=== PATIENT | female | born 1960 | race Caucasian/White ===

== ENCOUNTER 2023-10-26 18:44 | Emergency (ER) | payer OTHER, SELFPAY ==
[2023-10-26 18:49] VITALS: BP 132/69
[2023-10-26 19:33] VITALS: BMI 18.8
[2023-10-26 19:43] VITALS: BP 121/69
[2023-10-26 20:00] VITALS: BP 98/66
[2023-10-26 20:01] LABS: % Basophils 0.7 % (0-2); % Eosinophils 3.8 % (0-6); % Immature Granulocytes 0.3 % (0-0.5); % Lymphocytes 34.4 % (20.5-51.1); % Monocytes 8.6 % (1.7-9.3); % Neutrophils 52.2 % (42.2-75.2); Absolute Eosinophils 0.1 10^3/uL (0-0.7); Absolute Monocytes 0.3 10^3/uL (0.1-0.6); Absolute Neutrophils 1.5 10^3/uL (1.4-6.5); Hematocrit 35.9 % (37.0-47.0); Hemoglobin 12.6 g/dL (12.0-16.0); Mean Corp Hgb Conc. 35.1 g/dL (33.0-37.0); Mean Corpuscular Hgb 32.3 pg (27.0-31.0); Mean Corpuscular Volume 92.1 fL (81.0-99.0); Mean Platelet Volume 10.7 fL (7.4-10.4); Nucleated Red Blood Cells % 0 %; Platelet Count 186 10^3/uL (130-400); Red Cell Dist. Width 11.9 % (11.5-14.5); White Blood Cell Count 2.9 10^3/uL (4.8-10.8)
[2023-10-26 20:03] LABS: Urine Albumin Negative (Neg - Trace); Urine Bilirubin Negative (Negative); Urine Character Clear (Clear); Urine Color Yellow; Urine Glucose Negative (Negative); Urine Ketone Negative (Negative); Urine Leukocyte Negative (Negative); Urine Nitrite Negative (Negative); Urine Occult Blood Negative (Negative); Urine Urobilinogen Negative (Neg - 1+); Urine pH 6.5 (5.0-9.0)
[2023-10-26 20:22] LABS: ALT (SGPT) 15 U/L (0-35); AST (SGOT) 29 U/L (14-36); Albumin 4.8 g/dl (3.5-5.0); Alkaline Phosphatase 52 U/L (38-126); Blood Urea Nitrogen 17 mg/dl (7-17); Calcium 9.6 mg/dl (8.4-10.2); Carbon Dioxide 29 mmol/L (22-30); Chloride 98 mmol/L (98-107); Estimated Creatinine Clearance 87 ml/min; Glucose 94 mg/dl (70-99); Potassium 4.3 mmol/L (3.5-5.1); Sodium 133 mmol/L (135-145); Total Bilirubin 1.8 mg/dl (0.2-1.3); Total Protein 7.1 g/dl (6.3-8.2); eGFR > 60.00
[2023-10-26 21:00] VITALS: BP 117/72
[2023-10-26 22:17] VITALS: BP 114/80
--- NOTE | 2023-10-27 | ED.GENMED ---
History of Present Illness
General
Chief Complaint: Abdominal Symptoms
Source: patient
Exam Limitations: none
Time Seen by Provider: 10/26/23 19:56
Nursing documentation reviewed up to this point in time: agreed with
History of Present Illness
History of Present Illness:
Patient to ED with complaint of continuous abdominal bloating, pelvic pressure. Symptms have been present for months. Has rx for outpatient abd. and pelvic US but has not scheduled. Had colonoscopy 7 mos ago, normal Brought to ED by spouse for
eval. No fever/chlls, n/v/d.
Past History
Past History
ED Past Medical History: None
ED Past Surgical History: None
Social History
Tobacco: Non-smoker
Alcohol: Occasional
Drug: None
Personal: Single
Living: with family
Employment: Employed
Review of Systems
Review of Systems
Allergies reviewed?: Yes
All Other Systems: ROS reviewed and negative except as documented in HPI and ROS
Constitutional: Reports no symptoms
EENT: Reports no symptoms
Respiratory: Reports no symptoms
Cardiac: Reports no symptoms
ABD/GI: Reports other (abdominal bloating)
: Reports other (Pelvic pressure)
Musculoskeletal: Reports no symptoms
Skin: Reports no symptoms
Neurological: Reports no symptoms
Psychiatric: Reports no symptoms
Phy Exam
General Physical Exam
General Presentation: well appearing and no apparent distress
General age: appears stated age
General Skin: warm and dry
General Habitus: normal
Cardiovascular Exam
Cardiovascular Exam: regular rate/rhythm and no edema
Gastrointestinal Exam
Gastrointestinal Exam: normal bowel sounds, non tender, soft, no organomegaly, no pulsatile mass and non distended
Musculoskeletal Exam
Musculoskeletal Exam: full ROM and neuro vasc intact
Skin Exam
Skin Exam: normal color, warm/dry and no rash
Psychiatric Exam
Psychiatric Exam: normal mood/affect
Course
Orders/Labs/Results
Orders:
Orders
10/26/23 19:52
Complete Blood Count/With Diff Urgent
Comprehensive Metabolic Panel Urgent
Urinalysis Reflex To Culture Urgent
Date Specimen was Collected: 10/26/23
Time Specimen was Collected: 19:46
10/26/23 20:35
Pelvis (Non Obstetric) US [US Pelvis Only (non-obstetric)] Urgent
Comment:
Reason For Exam: pain
US Abdomen Complete/Upper Urgent
Comment:
Reason For Exam: bloating/fullness
Abnormal Lab Results
10/26/23
19:52
WBC 2.9 L 10^3/uL
(4.8-10.8)
RBC 3.90 L 10^6/uL
(4.20-5.40)
Hct 35.9 L %
(37.0-47.0)
MCH 32.3 H pg
(27.0-31.0)
MPV 10.7 H fL
(7.4-10.4)
Absolute Lymphs (auto) 1.0 L 10^3/uL
(1.2-3.4)
Sodium 133 L mmol/L
(135-145)
Total Bilirubin 1.8 H mg/dl
(0.2-1.3)
10/26/23 19:52
10/26/23 19:52
Vital Signs
Initial and Last Documented VS:
Initial Vital Signs
Temp Pulse Resp BP Pulse Ox
97.9 F 64 18 132/69 100
10/26/23 18:49 10/26/23 18:49 10/26/23 18:49 10/26/23 18:49 10/26/23 18:49
Last Documented Vital Signs
Temp Pulse Resp BP Pulse Ox
97.9 F 50 9 114/80 100
10/26/23 18:49 10/26/23 23:00 10/26/23 21:30 10/26/23 22:17 10/26/23 22:45
*Radiology
Radiology exam reviewed: radiology read reviewed
*Pulse Oximetry
Patient hypoxic: no
*Critical Care Note
Total Time (30-74mins, 75-104mins- exclusive of procedures): Not Applicable
Update Note
Update Note:
Labs, US results discussed wth patient. No concerning findings on exam. No findings to explain her complaint of bloating. She has a GI specialist with whom [facility]. Last seen 7mos ago for colonoscopy which was normal Recommend followup and
she is agreeable. She will also contact her [employer] to schedule an appointment for follow up .
ED Attending Note
-
Portions of this chart may have been created with voice recognition software.� Occasional wrong word or��sound alike� substitutions may have occurred due to the inherent limitations of voice recognition software.
Discharge Plan
Departure
Patient Disposition: Home (Routine Discharge)
Date of Disposition: 10/26/23
Time of Disposition: 23:01
Patient with high blood pressure during this ER visit?: No
Condition: Good
Covid-19: Not Applicable
Discharge Problem:
Abdominal bloating
Instructions: Gas and bloating
Prescriptions:
No Action
acetaminophen-codeine 300 MG/30 MG tablet
1 tab PO .Q4-6HPRN Qty: 30 0RF
Referrals:
Francine Castillo MD [Family Provider] - Follow up in 2-3 days
Interventions
Interventions:
*Risk Screen - Suicide Last Done: 10/26/23 18:49
*General Assessment Last Done: 10/26/23 18:49
*Neglect/Abuse Screening Last Done: 10/26/23 18:49
ED- Fall Risk Assessment Last Done: 10/26/23 19:33
*ED COVID-19 Vaccine History Last Done: 10/26/23 19:33
*Nursing Disposition Last Done: 10/26/23 23:31
RD-Grelxm-Kfsqquyyxo Assessment Last Done: 10/26/23 19:33
Discharge Date and Time
Discharge Date/Time: 10/26/23 23:33
Print Language: JORDANIAN
== END 2023-10-26 23:33 | disposition home or self-care (01) ==
LOC: EMR 18:44
PROVIDERS: Emergency Medicine; EMERGENCY PHYSICIAN Student in an Organized Health Care Education/Training Program; FAMILY PHYSICIAN Family Medicine
DX: R14.0 Abdominal distension (gaseous) (principal)
CPT/HCPCS: 99284; 76700; 76856; 80053; 81003; 85025

== ENCOUNTER → 2025-03-06 11:08 | Outpatient (REF) | payer OTHER, SELFPAY | LOC: REG 11:08 | PROVIDERS: ATTENDING PHYSICIAN Emergency Medicine | DX: R19.7 Diarrhea, unspecified (principal) | CPT/HCPCS: 87045; 87046; 87328; 87329; 87427 ==